=== PATIENT | female | born 1980 | race Caucasian/White ===

== ENCOUNTER 2018-07-18 13:52 | Emergency (ER) | payer OTHER ==
[2018-07-18 14:14] VITALS: BP 114/77
--- NOTE | 2018-07-18 14:14 | Emergency Department Report ---
Chief Complaint: Chest Pain Stated Complaint: CHEST PAIN/SOB Time Seen by Provider: 07/18/18 14:10 - HPI History of Present Illness: pt presents with right sided CP that began last night feels like a tightness dry cough + chest congestion + SOB subjective fever took zyrtec yesterday no recent long/car plane ride no recent surgery no OCP no recent immobilization NO LE Edema PMHx DM is supposed to be on metformin +smoker occ drinker no drug use MSE screening note: Focused history and physical exam performed. Due to findings the following was ordered: CP protocol ED Disposition for MSE Condition: Stable
[2018-07-18 15:17] LABS: Basophils # (Auto) 0.1 K/mm3 (0.0-0.1); Basophils % (Auto) 0.6 % (0.0-1.8); Eosinophils # (Auto) 0.2 K/mm3 (0.0-0.4); Eosinophils % (Auto) 1.6 % (0.0-4.3); Hematocrit 38.1 % (30.3-42.9); Hemoglobin 12.6 gm/dl (10.1-14.3); Lymphocytes # (Auto) 2.7 K/mm3 (1.2-5.4); Lymphocytes % (Auto) 23.6 % (13.4-35.0); Mean Corpuscular HGB Conc 33 % (30-34); Mean Corpuscular Volume 83 fl (79-97); Monocytes # (Auto) 0.5 K/mm3 (0.0-0.8); Monocytes % (Auto) 4.5 % (0.0-7.3); Platelet Count 383 K/mm3 (140-440); Red Blood Count 4.59 M/mm3 (3.65-5.03); Red Cell Distribution Width 15.2 % (13.2-15.2)
[2018-07-18 15:27] LABS: INR 0.95 (0.87-1.13)
[2018-07-18 15:28] LABS: Partial Thromboplastin Time 32.9 Sec. (24.2-36.6)
[2018-07-18 15:34] LABS: Alanine Aminotransferase 14 units/L (7-56); Albumin 4.5 g/dL (3.9-5); BUN/Creatinine Ratio 16; Blood Urea Nitrogen 13 mg/dL (7-17); Hemolysis Index 12
--- NOTE | 2018-07-18 18:20 | XRay Report ---
PROCEDURE: XR CHEST ROUTINE 2V TECHNIQUE: PA and lateral views of the chest HISTORY: Chest Pain COMPARISONS: None FINDINGS: There is no evidence of infiltrate, pneumothorax or pleural fluid collection. The cardiomediastinal silhouette is normal in appearance. The bony structures are unremarkable. IMPRESSION: 1. No evidence of an acute pulmonary process. This document is electronically signed by Rosalind Merino MD., Jul 18 2018 06:18:39 PM ET
== END 2018-07-18 19:50 | disposition left against medical advice (07) ==
LOC: ED 13:52
DX: R07.89 Other chest pain (principal); Z53.21 Procedure and treatment not carried out due to patient leaving prior to being seen by health care provider
CPT/HCPCS: 36415; 71046; 80053; 84484; 84703; 85025; 85379; 85610; 85730; 93005; 93010